=== PATIENT | male | born 1950 | race Caucasian/White ===

== ENCOUNTER 2017-10-28 13:59 | Outpatient (CLI) | payer MEDICARE, OTHER | END 2017-10-28 14:00 | disposition home or self-care (01) | LOC: SC 13:59 | PROVIDERS: ATTEND Internal Medicine Pulmonary Disease | DX: G47.33 Obstructive sleep apnea (adult) (pediatric) (principal) | CPT/HCPCS: 99203; G0463; 99212 ==

== ENCOUNTER 2017-12-14 20:14 | Outpatient (CLI) | payer MEDICARE, OTHER | END 2017-12-14 20:15 | disposition home or self-care (01) | LOC: SC 20:14 | PROVIDERS: ATTEND Internal Medicine Pulmonary Disease | DX: G47.33 Obstructive sleep apnea (adult) (pediatric) (principal) | CPT/HCPCS: 95811 ==

== ENCOUNTER 2018-01-06 14:14 | Outpatient (CLI) | payer MEDICARE, OTHER | END 2018-01-06 14:15 | disposition home or self-care (01) | LOC: SC 14:14 | PROVIDERS: ATTEND Nurse Practitioner Family | DX: G47.33 Obstructive sleep apnea (adult) (pediatric) (principal) | CPT/HCPCS: 99214; G0463; 99212 ==

== ENCOUNTER 2018-03-03 10:12 | Outpatient (CLI) | payer MEDICARE, OTHER | END 2018-03-03 10:13 | disposition home or self-care (01) | LOC: SC 10:12 | PROVIDERS: ATTEND Nurse Practitioner Family | DX: G47.33 Obstructive sleep apnea (adult) (pediatric) (principal) | CPT/HCPCS: 99214; G0463; 99212 ==

== ENCOUNTER 2018-06-03 10:07 | Outpatient (CLI) | payer MEDICARE, OTHER | END 2018-06-03 10:08 | disposition home or self-care (01) | LOC: SC 10:07 | PROVIDERS: ATTEND Nurse Practitioner Family | DX: G47.33 Obstructive sleep apnea (adult) (pediatric) (principal) | CPT/HCPCS: 99214; G0463; 99212 ==

== ENCOUNTER 2020-10-05 17:00 | Outpatient (CLI) | payer MEDICARE, OTHER | END 2020-10-05 17:01 | disposition home or self-care (01) | LOC: COV 17:00 | PROVIDERS: ATTEND Family Medicine | DX: Z20.822 Contact with and (suspected) exposure to COVID-19 (principal) ==